=== PATIENT | female | born 1995 | race Caucasian/White ===

== ENCOUNTER 2020-08-02 16:13 | Emergency (ER) | payer BC, SELFPAY ==
[2020-08-02 16:35] VITALS: BP 144/75; PULSE 69; RESP 14; TEMP 36.7; O2SAT 98; BMI 33.5
[2020-08-02 17:29] LABS: Add Manual Diff / Slide Review NO; Basophils Absolute Auto 0 /uL (0-100); Basophils Percent Auto 0.6 % (0-2); Eosinophils Absolute Auto 100 /uL (0-450); Eosinophils Percent Auto 0.9 % (2-4); Hematocrit 40.3 % (36-46); Hemoglobin 13.7 g/dL (12.0-16.0); Lymphocytes Absolute Auto 1400 /uL (1100-4500); Lymphocytes Percent Auto 19.7 % (25-40); Mean Corpuscular HGB Conc 34.1 % (30-36); Mean Corpuscular Hemoglobin 28.9 PG (26-34); Mean Corpuscular Volume 84.9 fL (80-100); Monocytes Absolute Auto 700 /uL (0-900); Monocytes Percent Auto 9.2 % (3-14); Neutrophils Absolute Auto 5100 /uL (1500-7000); Neutrophils Percent Auto 69.6 % (50-75); Platelet Count 295 X10^3/uL (150-400); Red Blood Cell Count 4.74 X10^6/uL (4.0-5.2); Red Cell Distribution Width 13.2 % (11.6-14.8); White Blood Cell Count 7.4 X10^3/uL (4.5-11.0)
[2020-08-02 17:39] LABS: Alanine Aminotransferase 22 IU/L (<35); Albumin 4.5 g/dL (3.5-5.0); Albumin Globulin Ratio 1.3 (1.0-2.8); Alkaline Phosphatase 66 U/L (38-126); Aspartate Aminotransferase 27 IU/L (14-36); BUN Creatinine Ratio 19.4 (6-22); Bilirubin Total 0.8 mg/dL (0.2-1.3); Blood Urea Nitrogen 14 mg/dL (7-17); Calcium 9.8 mg/dL (8.4-10.2); Carbon Dioxide 26 mmol/L (22-32); Chloride 107 mmol/L (98-107); Estimated Glomerular Filt Rate > 60.0 mL/min (>60); Globulin 3.4 g/dL (1.7-4.1); Glucose 112 mg/dL (70-100); HEMOLYSIS < 15 (0-50); Lipase 104 U/L (23-300); Sodium 143 mmol/L (137-145); Total Protein 7.9 g/dL (6.3-8.2)
[2020-08-02 17:41] LABS: INR 1.1 (0.9-1.3); Prothrombin Time 12.8 SECONDS (10.1-12.7)
[2020-08-02 17:44] LABS: PTT Partial Thromboplastin Tim 33 SECONDS (26.4-36.2)
--- NOTE | 2020-08-02 17:55 | ED_ITS ---
HPI - Abdominal Pain General Chief Complaint: Abdominal Pain Stated Complaint: Pain in Right Lower Abd, Cramps, Nausea Time Seen by Provider: 08/02/20 17:54 Source: patient Mode of arrival: Ambulatory Limitations: no limitations History of Present Illness HPI narrative: 25F nonsmoker with nonsignificant medical history presents with the chief complaint of gradually worsening lower abdominal discomfort over the the past day or so. She states that she has intermittent crampy abdominal pain which is across much of her lower abdomen and at times seems to settle in her right lower quadrant. She denies nausea or vomiting and states she has had no change in her appetite. She denies any dysuria, frequency or urgency. She just finished her last period and states it was normal. She had a bowel movement earlier that was normal for her. She denies any vaginal bleeding or discharge. She has no dysuria, frequency or urgency. She denies any obvious provocation or palliation and states that the pain seems to come and go with the mind of its own MD complaint: abdominal pain Onset (ago): hour(s) Pain Consistency: intermittent Location: diffuse Severity: mild Quality: cramping Relieving factors: nothing Associated symptoms: nausea Related Data Allergies Allergy/AdvReac Type Severity Reaction Status Date / Time No Known Drug Allergies Allergy Verified 08/02/20 16:39 Review of Systems Constitutional Constitutional: Denies chills, Denies fatigue, Denies fever(s), Denies frequent falls, Denies lethargy and Denies weakness Eyes Eyes: Denies change in vision, Denies eye discharge, Denies irritation and Denies loss of vision ENT Ears, Nose, Mouth, and Throat: Denies change in voice, Denies dizziness, Denies neck pain, Denies sore throat and Denies throat swelling Cardiovascular Cardiovascular: Denies chest pain, Denies irregular heart rhythm, Denies lightheadedness, Denies palpitations, Denies dyspnea, Denies dyspnea on exertion and Denies orthopnea Respiratory Respiratory: Denies cough, Denies dyspnea, Denies dyspnea on exertion and Denies wheezing Gastrointestinal Gastrointestinal: Reports abdominal pain, Denies change in bowel habits, Denies diarrhea, Reports nausea and Denies vomiting Musculoskeletal Musculoskeletal: Denies neck pain and Denies numbness Integumentary/Breasts Skin/Breast: Denies pruritus, Denies erythema, Denies rash and Denies wounds Neurologic Neurologic: Denies behavioral changes, Denies confusion, Denies dizziness, Denies frequent falls, Denies loss of vision, Denies numbness and Denies weakness Psychiatric Psychiatric: Denies anxiety, Denies behavioral changes, Denies confusion, Denies depression, Denies homicidal ideation and Denies suicidal ideation Endocrine Endocrine: Denies fatigue, Denies flushing and Denies palpitations Hematologic/Lymphatic Hematologic/Lymphatic: Denies easy bruising Allergic/Immunologic Allergic/Immunologic: Denies urticaria, Denies throat swelling and Denies wheezing Patient History Social History Smoking Status: Unknown if ever smoked Smoking Status: Unknown if ever smoked alcohol intake frequency: holidays/special occasions only Substance Use Type: marijuana Exam Narrative Exam Narrative: GENERAL: [25] year old patient appears stated age. Well- nourished, well-developed patient, in mild distress. HEAD: Atraumatic. Normocephalic. EYES: Pupils equal round and reactive. Extraocular motions intact. No scleral icterus. No injection or drainage. ENT: Nose without bleeding, purulent drainage. Throat without erythema, t onsillar hypertrophy or exudate. Airway patent. NECK: Trachea midline. Non tender CARDIOVASCULAR: Regular rate and rhythm without murmurs, gallops, or rubs. RESPIRATORY: Clear to auscultation. Breath sounds equal bilaterally. No wheezes, rales, or rhonchi. GASTROINTESTINAL: Abdomen soft, non-tender, nondistended. Bowel sounds present in all 4 quadrants. No pain at McBurney's, negative heel tap, psoas, Rovsing's EXTREMITIES: No edema or joint tenderness. BACK: Nontender without deformity or crepitance. No flank tenderness. NEURO: AOx3. SKIN: No rash or erythema of visible areas Initial Vital Signs Initial Vital Signs: Vital Signs Temperature 98.1 F 08/02/20 16:35 Pulse Rate 69 08/02/20 16:35 Respiratory Rate 14 08/02/20 16:35 Blood Pressure 144/75 H 08/02/20 16:35 Pulse Oximetry 98 08/02/20 16:35 Course Orders Ordered: ED Orders 08/02/20 17:08 Complete Blood Count AUTO DIFF Stat Comprehensive Metabolic Panel Stat Lipase Stat Partial Thromboplastin Time Stat Prothrombin Time INR Stat Vital Signs Vital signs: Vital Signs - 8 hr 08/02/20 16:35 08/02/20 18:25 Temperature 98.1 F Pulse Rate 69 64 Respiratory Rate 14 Blood Pressure 144/75 H 130/60 Pulse Oximetry 98 99 MDM - Abdominal Pain Lab Data Result diagrams: 08/02/20 17:08 08/02/20 17:08 Labs: Lab Results 08/02/20 08/02/20 08/02/20 Range/Units 17:08 17:08 17:08 WBC 7.4 (4.5-11.0) X10^3/uL RBC 4.74 (4.0-5.2) X10^6/uL Hgb 13.7 (12.0-16.0) g/dL Hct 40.3 (36-46) % MCV 84.9 (80-100) fL MCH 28.9 (26-34) PG MCHC 34.1 (30-36) % RDW 13.2 (11.6-14.8) % Plt Count 295 (150-400) X10^3/uL Neut % (Auto) 69.6 (50-75) % Lymph % (Auto) 19.7 L (25-40) % [place] % (Auto) 9.2 (3-14) % Eos % (Auto) 0.9 L (2-4) % Baso % (Auto) 0.6 (0-2) % Neut # (Auto) 5100 (2141-8188) /uL Lymph # (Auto) 1400 (7429-6950) /uL [place] # (Auto) 700 (0-900) /uL Eos # (Auto) 100 (0-450) /uL Baso # (Auto) 0 (0-100) /uL PT 12.8 H (10.1-12.7) SECONDS INR 1.1 (0.9-1.3) APTT 33 (26.4-36.2) SECONDS Sodium 143 (137-145) mmol/L Potassium 4.0 (3.4-5.1) mmol/L Chloride 107 (98-107) mmol/L Carbon Dioxide 26 (22-32) mmol/L BUN 14 (7-17) mg/dL Creatinine 0.72 (0.52-1.04) mg/dL Estimated GFR > 60.0 (>60) mL/min BUN/Creatinine Ratio 19.4 (6-22) Glucose 112 H (70-100) mg/dL Calcium 9.8 (8.4-10.2) mg/dL Total Bilirubin 0.8 (0.2-1.3) mg/dL AST 27 (14-36) IU/L ALT 22 (<35) IU/L Alkaline Phosphatase 66 (38-126) U/L Total Protein 7.9 (6.3-8.2) g/dL Albumin 4.5 (3.5-5.0) g/dL Globulin 3.4 (1.7-4.1) g/dL Albumin/Globulin Ratio 1.3 (1.0-2.8) Lipase 104 (23-300) U/L Point of care testing: Point of Care Testing Test Results Negative Urine Dip Bedside Urine Glucose Negative Bedside Urine Bilirubin - Negative Bedside Urine Ketone - Negative Urine Specific [place] 1.015 Bedside Urine Occult Blood - Negative Bedside Urine pH 6.0 Bedside Urine Protein - Negative Bedside Urine Urobilinogen - Negative Bedside Urine Nitrite - Negative Bedside Urine Leukocytes - Negative Esterase MDM Narrative Medical decision making narrative: Patient with intermittent crampy abdominal pain. Lack of migration, provocation, palliation, radiation. No fever, no leukocytosis. Exam and story are very reassuring. We did have extensive discussion at the bedside with patient and her mother and engaged in shared decision making. I told him this could be a presentation of early appendicitis though far from classic. We talked about risks and benefits of CT tonight versus close follow-up in 12-24 hours unsure the opinion that given her reassuring history, physical and labs that we would learn a lot over the next day. She has been given return precautions and understands the importance of close follow-up. Questions have been answered to her apparent satisfaction Discharge Plan Departure Patient Disposition: Home Clinical Impression: Abdominal pain Qualifiers: Abdominal location: generalized Qualified Code(s): R10.84 - Generalized abdominal pain Instructions: DI for Abdominal Pain-Adult Activity Restrictions/Additional Instructions: *You have been diagnosed with [crampy abdominal pain with reassuring history, exam and labs. This could be early appendicitis and as we discussed we will learn more in the next 12-24 hours.] *What to do: *Take medications as directed *Follow up with your primary care provider in 2-3 days, call for an appointment. Let them know you were seen in the Emergency Department and that we ask that you be seen in follow up *Return to ER if you should have any new, worsening or concerning symptoms, such as [worsening, more persistent pain, fever greater than 101, vomiting or other bothersome symptoms] Referrals: Divine Ricks MD [Primary Care Provider] -
[2020-08-02 18:25] VITALS: BP 130/60; PULSE 64; O2SAT 99
== END 2020-08-02 18:25 | disposition home or self-care (01) ==
PROVIDERS: Emergency Medicine; Emergency Provider Emergency Medicine; PCP Family Medicine
DX: R10.84 Generalized abdominal pain (principal)
CPT/HCPCS: 36415; 80053; 81003; 81025; 83690; 85025; 85610; 85730; 99283

== ENCOUNTER → 2022-02-23 13:54 | Outpatient (CLI) | payer BC, SELFPAY | PROVIDERS: PCP Family Medicine; Visit Provider Nurse Practitioner Family | DX: J02.9 Acute pharyngitis, unspecified (principal) | CPT/HCPCS: 87070; 87147 ==

== ENCOUNTER → 2023-05-30 13:14 | Outpatient (CLI) | payer OTHER, SELFPAY ==
[2023-05-30 14:07] LABS: Add Manual Diff / Slide Review NO; Basophils Absolute Auto 0 /uL (0-100); Basophils Percent Auto 0.3 % (0-2); Eosinophils Absolute Auto 100 /uL (0-450); Eosinophils Percent Auto 0.9 % (2-4); Hematocrit 40.1 % (36-46); Hemoglobin 13.7 g/dL (12.0-16.0); Lymphocytes Absolute Auto 1500 /uL (1100-4500); Lymphocytes Percent Auto 16.4 % (25-40); Mean Corpuscular HGB Conc 34.1 % (30-36); Mean Corpuscular Volume 85.1 fL (80-100); Monocytes Absolute Auto 500 /uL (0-900); Monocytes Percent Auto 5.4 % (3-14); Neutrophils Absolute Auto 6900 /uL (1500-7000); Platelet Count 331 X10^3/uL (150-400); Red Blood Cell Count 4.72 X10^6/uL (4.0-5.2); Red Cell Distribution Width 13.3 % (11.6-14.8)
[2023-05-30 15:44] LABS: Urine N gonorrhoeae NOT DETECTED
[2023-05-30 15:58] LABS: Urine Chlamydia NOT DETECTED
[2023-05-30 16:34] LABS: Hepatitis B Surface Antigen NEGATIVE s/c (NEGATIVE)
[2023-05-30 16:50] LABS: HIV 1 & 2 Ab/Ag 4th Gen Combo NEGATIVE (NEGATIVE); Hep C Virus Ab w/Reflex Quant NEGATIVE s/c (NEGATIVE)
[2023-05-30 18:16] LABS: Appearance Urine UA TURBID; Bilirubin Urine UA NEGATIVE (NEGATIVE); Color Urine UA YELLOW; Glucose Urine UA NEGATIVE (Negative); Ketones Urine UA NEGATIVE (NEGATIVE); Leukocyte Esterase Urine UA NEGATIVE (NEGATIVE); Nitrite Urine UA NEGATIVE (Negative); Occult Blood Urine UA NEGATIVE (Negative); Protein Urine UA NEGATIVE (Negative); Specific Gravity Urine UA 1.025 (1.000-1.035); Urobilinogen Urine UA 0.2 E.U./dL (0.2)
[2023-05-30 18:20] LABS: pH Urine UA 5.5 (4.5-8.0)
[2023-05-31 05:13] LABS: RPR Screen Non Reactive (Non Reactive)
[2023-05-31 09:58] LABS: Varicella IgG Antibody 2508 index (Immune >165)
== END ==
LOC: LAB 13:15
PROVIDERS: PCP Family Medicine; Referring Provider Family Medicine; Visit Provider Family Medicine
DX: Z34.01 Encounter for supervision of normal first pregnancy, first trimester (principal)
CPT/HCPCS: 36415; 80055; 81003; 86787; 86803; 86850; 86900; 86901; 87086; 87389; 87491; 87591

== ENCOUNTER → 2023-07-21 07:50 | Outpatient (CLI) | payer OTHER, SELFPAY ==
[2023-07-21 08:42] LABS: Influenza A - CEPHEID Flu A NEGATIVE (NEGATIVE); Influenza B - CEPHEID Flu B NEGATIVE (NEGATIVE); Respiratory Syncytial Virus Negative (Negative)
[2023-07-21 08:45] LABS: COVID-19 CEPHEID 4-PLEX PCR Negative (Negative)
== END ==
PROVIDERS: PCP Family Medicine; Visit Provider Physician Assistant Medical
DX: J02.9 Acute pharyngitis, unspecified (principal); R52 Pain, unspecified
CPT/HCPCS: 0241U; 87070

== ENCOUNTER → 2023-07-29 11:06 | Outpatient (CLI) | payer OTHER, SELFPAY ==
[2023-08-01 13:58] LABS: Estriol, Free 1.55 ng/mL (.); Inhibin A, Dimeric 98.45 pg/mL (.); Inhibin A, MoM 0.84 (.); Maternal Ethnicity Caucasian (.); Maternal Weight 239 lbs (.); Number of Fetuses No (.); OSBR Risk 1 IN 10000 (.); Results Report (.); Test Results *Screen Negative* (.); hCG, MoM 0.67 (.); hCG, Serum 16434 mIU/mL (.)
== END ==
PROVIDERS: PCP Family Medicine; Referring Provider Family Medicine; Visit Provider Family Medicine
DX: Z34.00 Encounter for supervision of normal first pregnancy, unspecified trimester (principal)
CPT/HCPCS: 36415; 82105; 82677; 84702; 86336

== ENCOUNTER → 2023-08-18 10:12 | Outpatient (CLI) | payer OTHER, SELFPAY ==
--- NOTE | 2023-08-18 10:13 | DI.US.S_ITS ---
PROCEDURE: US OB >= 14 WEEKS FETUS INDICATIONS: ANATOMY OUTSIDE/PRIOR DATING DATA: Last menstrual period (LMP): 04/01/2023. LMP-based estimated date of delivery (CHELSEY): 01/05/2024. First dating scan (date and location): Not available. Estimated date of delivery (CHELSEY) from first dating scan: Not available. The calculations are made using the working CHELSEY of 01/06/2024. TECHNIQUE: Real-time scanning was performed of the fetus, with image documentation and biometric measurements. Endovaginal scanning: Not performed COMPARISON: None. FINDINGS: General: A single living intrauterine gestation is present. Presentation: Breech. Placenta: Placental position is anterior , without previa. Amniotic fluid index: 10.6 cm, normal range is 5-24 cm. Single deepest vertical pocket is 3.6 cm. heart rate: 139 beats per minute. Maternal cervical canal: 3.9 cm long. Normal lower limit is 2.5 cm. biometrics: Biparietal diameter: 4.7 cm, 20 weeks 2 days Head circumference: 18.4 cm, 20 weeks 6 days Abdominal circumference: 15.3 cm, 20 weeks 3 days Femur length: 3.2 cm, 19 weeks 6 days Clinically estimated gestational age: 19 weeks 6 days Composite gestational age from present scan: 20 weeks 3 days Estimated weight and percentile: 342 g, 69th percentile Anatomic survey: Neuro: Ventricles are non-dilated at less than 10 mm. Cisterna magna is normal at 3-11 mm. Cerebellum is normal in size and morphology. Nuchal skin fold: Normal at less than 6 mm between 14-21 weeks gestational age. Face: Nose and lips are normal. profile not visualized secondary to lie. Spine: No evidence for spina bifida. Heart: 4-chambered heart and ventricular outflow tracts not visualized secondary to lie. Diaphragm: Diaphragm is intact. Stomach: Left-sided stomach is present. Kidneys: No hydronephrosis. Normal is less than 5 mm in 2nd trimester, less than 7 mm in 3rd trimester. Cord: 3-vessel cord has orthotopic insertion. Bladder: Normal in size. Extremities: All 4 extremities identified. IMPRESSION: 1. Living 2nd trimester intrauterine with no sonographic evidence of complications. Ultrasound age is 4 days greater than clinical age. Estimated weight is 69th percentile. 2. Four-chamber view and cardiac outflow tracts are not visualized, and profile is not visualized secondary to lie. Comment: Recommend limited follow-up ultrasound to evaluate cardiac structures and profile. We strive to produce accurate, complete, and clear reports of imaging services. To assist us in improving patient care, this report was composed using standard report templates and voice recognition software. Therefore, it may contain abnormal punctuation, insertions and/or omissions. Occasional wrong-word or sound-alike substitutions may occur. Though we review the report and make efforts to correct it, we do recommend that the report be read carefully in proper context to recognize any text inaccuracies. Dictated by: Isaiah White M.D. on 08/18/2023 at 15:45 Approved by: Isaiah White M.D. on 08/18/2023 at 15:49
== END ==
LOC: US 10:12
PROVIDERS: PCP Family Medicine; Referring Provider Family Medicine; Visit Provider Family Medicine
DX: Z34.02 Encounter for supervision of normal first pregnancy, second trimester (principal); Z3A.20 20 weeks gestation of pregnancy
CPT/HCPCS: 76811

== ENCOUNTER → 2023-09-14 09:18 | Outpatient (CLI) | payer OTHER, SELFPAY ==
--- NOTE | 2023-09-14 09:19 | DI.US.S_ITS ---
PROCEDURE: US OB FOLLOW UP INDICATIONS: anatomy OUTSIDE/PRIOR DATING DATA: Last menstrual period (LMP): 04/01/2023. LMP-based estimated date of delivery (CHELSEY): 01/05/2024. First dating scan (date and location): Not applicable. Estimated date of delivery (CHELSEY) from first dating scan: Not applicable. The calculations are made using the working CHELSEY of 01/06/2024. TECHNIQUE: Real-time scanning was performed of the fetus, with image documentation and biometric measurements. Endovaginal scanning: None COMPARISON: [facility], , OB >= 14 WEEKS FETUS, 08/18/2023, 10:39. FINDINGS: General: A single living intrauterine gestation is present. Presentation: Vertex. Placenta: Placental position is anterior , without previa. Amniotic fluid index: 15.0 cm, normal range is 5-24 cm. Single deepest vertical pocket is 5.0 cm. heart rate: 153 beats per minute. Maternal cervical canal: 3.4 cm long. Normal lower limit is 2.5 cm. Anatomic survey: Neuro: Ventricles are normal at less than 10 mm. Cisterna magna is normal at 3-11 mm. Cerebellum is normal in size and morphology. Nuchal skin fold: Normal at less than 6 mm between 14 and 21 weeks gestational age. Face: Not well seen Spine: No evidence for spina bifida. Heart: Four-chamber view is normal, however, the ventricular outflow tracts are not well seen Diaphragm: Not well seen Stomach: Left-sided stomach is present. Kidneys: No hydronephrosis. Normal is less than 5 mm in 2nd trimester, less than 7 mm in 3rd trimester. Cord: 3 vessel cord has orthotopic insertion. Bladder: Normal in size. Extremities: All 4 extremities are visualized. IMPRESSION: Single live intrauterine consistent with a 23 week 5 day gestation given working CHELSEY Facial profile and ventricular outflow tracks are again not well seen on the current exam. Attention on follow-up. Approved by: Anatoly Ndiaye M.D. on 09/14/2023 at 11:07
== END ==
LOC: US 09:19
PROVIDERS: PCP Family Medicine; Referring Provider Family Medicine; Visit Provider Family Medicine
DX: Z34.02 Encounter for supervision of normal first pregnancy, second trimester (principal); Z3A.23 23 weeks gestation of pregnancy
CPT/HCPCS: 76816

== ENCOUNTER 2023-09-22 11:27 | Emergency (ER) | payer OTHER, SELFPAY ==
[2023-09-22 11:36] VITALS: BP 161/79; PULSE 90; RESP 18; TEMP 36.1; O2SAT 100; BMI 39.6
--- NOTE | 2023-09-22 13:20 | PC.NURSE ---
Provider in with pt when this RN arrived, provider assessing pt at that time.
--- NOTE | 2023-09-22 13:26 | ED_ITS ---
HPI - Extremity Problem <Divine Aguilar PA-C - Last Filed: 09/22/23 13:56> General Chief complaint: Extremity Problem,Nontraumatic Stated complaint: out of place rib, 25 weeks Time Seen by Provider: 09/22/23 12:12 Source: patient Mode of arrival: Ambulatory History of Present Illness HPI Narrative: This is a 28-year-old woman 26 weeks presenting with concern for persistent rib discomfort and muscle tightness specifically with coughing. Patient states that she has seasonal allergies and has had particular trouble with them this year with her often getting postnasal drip causing throat irritation and coughing. Last week she was coughing and felt a twinge in her left side upper ribs with an intense coughing spasm and since then has had intermittent discomfort and muscle tightness in the ribs and has trouble relaxing the area. She has seen a chiropractor twice for adjustments which has helped briefly but not persistently. Her OB saw her recently and increased her daily antihistamine oral medication. She is here today as she was advised to come in and seek options for muscle relaxer. She states she has been taking Tylenol and using icy hot which provides limited relief for a short duration. Denies fevers, chills, nausea, vomiting, diarrhea, abdominal pain, or any other symptoms. Related Data Home Medications Medication Instructions Recorded Confirmed Bacillus coagulans 400 million cell PO 05/03/23 09/20/23 cell chewable tablet (Digestive Advantage Kid Probiotic-Prebio) calcium carbonate 333 mg-magnesium 1 tab PO DAILY 05/03/23 09/20/23 oxide 133 mg-zinc gluc 5 mg tablet vitamin-ferrous sulfate tab PO 05/03/23 09/20/23 27 mg iron-folic acid 0.8 mg tablet Previous Rx's Medication Instructions Recorded baclofen 10 mg tablet 10 mg PO BID muscle spasm/strain 7 09/22/23 days #14 tabs cromolyn 5.2 mg/spray (4 %) nasal 1 spray intranasal TID seasonal 09/22/23 spray alleriges/rhinitis 14 days #26 mL fluticasone propionate 50 2 spray intranasal DAILY allergic 09/22/23 mcg/actuation nasal rhinitis 14 days #16 grams spray,suspension lidocaine 5 % topical ointment 1 applic topical BID PRN pain 7 09/22/23 days #30 grams Allergies Allergy/AdvReac Type Severity Reaction Status Date / Time liquid cough syrup AdvReac Mild Uncoded 09/20/23 14:32 Review of Systems <Divine Aguilar PA-C - Last Filed: 09/22/23 13:56> Review of Systems Narrative: See HPI Patient History <Divine Aguilar PA-C - Last Filed: 09/22/23 13:56> Medical History Eczema Wrist fracture Surgical History History of removal of skin mole [place] teeth extracted Family History Father Diabetes mellitus Stroke Heart disease Mother Diverticulosis Depression Uncle Diabetes mellitus Social History marital status: number of children: 0 household members: spouse lives independently: Yes caregiver/support person: No housing: house pets and animals: Yes (2 dogs) education level: college (bachelor's degree) occupational status: employed special dajuan needs: No travel history: recent (domestic only) seatbelt use: always helmet use: Yes water heater temp set < 120 deg: Yes working smoke detector in home: Yes fire extinguisher in home: Yes carbon monox detector in home: Yes firearms in home: Yes do you feel safe at home: Yes (pt's spouse present when this was answered) Smoking Status: Never smoker second hand exposure: No alcohol intake: former (occasionally when not ) substance use type: marijuana (not while /) during the past year weight has: increased > 10 lbs (reports that it started w/ Nexplanon) well-balanced diet: about half the time daily servings fruits/ve-4 (Usually ~2) caffeine: Yes (~100-150mg/day) Type(s) of exercise: aerobic Smoking Status: Never smoker alcohol intake frequency: holidays/special occasions only Substance Use Type: does not use Exam <Divine Aguilar PA-C - Last Filed: 09/22/23 13:56> Narrative Exam Narrative: GENERAL: [28] year old patient appears stated age. Well-developed patient, in mild distress. HEAD: Atraumatic. Normocephalic. EYES: Pupils equal round and reactive. Extraocular motions intact. No scleral icterus. No injection or drainage. ENT: Nose without bleeding, purulent drainage. Airway patent. NECK: Trachea midline. Non tender CARDIOVASCULAR: Regular rate and rhythm without murmurs, gallops, or rubs. RESPIRATORY: Clear to auscultation. Breath sounds equal bilaterally. No wheezes, rales, or rhonchi. GASTROINTESTINAL: Abdomen nondistended, protuberant consistent with 26 weeks' gestation, no CVA tenderness. EXTREMITIES: No edema or joint tenderness. BACK/thorax: Patient has tenderness with palpation laterally and anteriorly of the intercostal space in ribs 7 through 10 with reproducible pain. Muscle tightness at the rhomboids on the left and around the shoulder girdle. Otherwise Nontender without deformity or crepitance. No flank tenderness. NEURO: AOx3. SKIN: No rash or erythema of visible areas Initial Vital Signs Initial Vital Signs: Vital Signs Temperature 97 F L 09/22/23 11:36 Pulse Rate 90 09/22/23 11:36 Respiratory Rate 18 09/22/23 11:36 Blood Pressure 161/79 H 09/22/23 11:36 Pulse Oximetry 100 09/22/23 11:36 Oxygen Delivery Method Room Air 09/22/23 11:36 <Melissa Penaloza DO - Last Filed: 09/23/23 08:50> Initial Vital Signs Initial Vital Signs: Vital Signs Temperature 97 F L 09/22/23 11:36 Pulse Rate 90 09/22/23 11:36 Respiratory Rate 18 09/22/23 11:36 Blood Pressure 161/79 H 09/22/23 11:36 Pulse Oximetry 100 09/22/23 11:36 Oxygen Delivery Method Room Air 09/22/23 11:36 Course <Divine Aguilar PA-C - Last Filed: 09/22/23 13:56> Vital Signs Vital signs: Vital Signs - 8 hr 09/22/23 11:36 09/22/23 13:50 Temperature 97 F L Pulse Rate 90 88 Respiratory Rate 18 18 Blood Pressure 161/79 H 154/76 H Pulse Oximetry 100 100 Oxygen Delivery Method Room Air Room Air <DO Pepper Andersen Last Filed: 09/23/23 08:50> Vital Signs Vital signs: Vital Signs - 8 hr 09/22/23 11:36 09/22/23 13:50 Temperature 97 F L Pulse Rate 90 88 Respiratory Rate 18 18 Blood Pressure 161/79 H 154/76 H Pulse Oximetry 100 100 Oxygen Delivery Method Room Air Room Air MDM - Extremity (Nontraumatic) <Divine Aguilar PA-C - Last Filed: 09/22/23 13:56> Differential Diagnosis Differential diagnosis: Likely other (Muscle strain, muscle spasm, intercostal muscle strain, seasonal allergies, allergic rhinitis, rhinitis) MDM Narrative Medical decision making narrative: 28-year-old woman 26 weeks presents with concern for approximately 1 week of bothersome intercostal muscle tightness worse with coughing has been seen by her OB and had chiropractic adjustments to times. Presents today with concern for wanting to try a muscle relaxer in order to allow her to get some rest and additional options to help reduce postnasal drip which is causing her to cough and causing the pain. Discussed with the patient safety of muscle relaxer and noting that these are not well studied, patient understands and will use minimally baclofen as prescribed no more than 20 mg TID recommend she only take 10 mg at night to help with symptoms for short duration also requests she speak with her OB about this medication and ensure they are on board. Prescription for topical lidocaine encouraged she may try diclofenac topically as well. Prescription for cromolyn and fluticasone nasal spray. Return precautions provided, follow-up plan discussed, all questions answered. Patient's exam and history do not suggest internal process such as pancreatitis UTI pyelonephritis. She is quite well-appearing and denies any other concerning symptoms and states is progressing normally. Discharge Plan Departure Patient Disposition: Home Clinical Impression: Acute seasonal allergic rhinitis Intercostal muscle strain Qualifiers: Encounter type: initial encounter Qualified Code(s): S29.011A - Strain of muscle and tendon of front wall of thorax, initial encounter Activity Restrictions/Additional Instructions: *You have been diagnosed with [muscle strain intercostal/spasm, rhinitis/seasonal allergies] *What to do: *Please continue to take your regular medications as directed. [3 ] New medication prescriptions sent to your pharmacy: [Cromolyn nasal spray, fluticasone, baclofen] [ ] New medication written as a paper prescription [ ] No new medications given *Please follow up with your primary care provider in 2-3 days, call for an appointment. Let them know you were seen in the Emergency Department and that we ask that you be seen in follow up. We will electronically transmit a record of today's note if your PCP is in our system. As we discussed today in the ER there have been limited studies performed on most muscle relaxers in , some of them are noted to be unsafe. The 1 I have prescribed for you today has been studied somewhat in and with prolonged use does show withdrawal symptoms at in infants. As we discussed I would encourage you to use it once a day at night only up to twice a day if needed for short duration only. I also would like you to talk to your OB about use of this medication and ensure they are on board as well. Hopefully this will allow you to get some rest and improve her symptoms with your muscle strain and rib problem. I also prescribed cromolyn sodium nasal spray and fluticasone, these may both be available [id number] and are both safe for use in . I hope this helps to reduce your nasal drip and coughing and therefore minimize your rib discomfort. I hope you feel better soon. *If you do not have a primary care provider please contact the [facility] Resource line at [phone]. They will ask some questions about your medical history and help get you set up with a doctor in the community. *Return to Emergency Department if you should have any new, worsening or co ncerning symptoms, such as [fever greater than 101 F, shaking chills, worsening pain, persistent vomiting or other bothersome symptoms] Prescriptions: New baclofen 10 mg tablet 10 mg PO BID 7 Days Qty: 14 0RF cromolyn 5.2 mg/spray (4 %) spray,non-aerosol 1 spray intranasal TID 14 Days Qty: 26 0RF fluticasone propionate 50 mcg/actuation spray,suspension 2 spray intranasal DAILY 14 Days Qty: 16 0RF Rx Instructions: administer into each nostril lidocaine 5 % ointment 1 applic topical BID PRN (Reason: pain) 7 Days Qty: 30 0RF No Action vit-ferrous sulfat-FA 27 mg iron- 0.8 mg tablet PO calcium carb-mag ox-zinc gluc 333-133-5 mg tablet 1 tab PO DAILY Digestive Advantag Kid Pro-Pre 400 million cell tablet,chewable PO Referrals: Divine Ricks MD [Primary Care Provider] - Stand Alone Forms: Patient Portal/API ED Sign-out <Melissa Penaloza DO - Last Filed: 09/23/23 08:50> Cosign ED Attending Dylonature Attestation: I was available for consultation.
[2023-09-22 13:50] VITALS: BP 154/76; PULSE 88; RESP 18; O2SAT 100
== END 2023-09-22 13:51 | disposition home or self-care (01) ==
PROVIDERS: Emergency Provider Student in an Organized Health Care Education/Training Program; PCP Family Medicine
DX: O26.892 Other specified pregnancy related conditions, second trimester (principal); J30.2 Other seasonal allergic rhinitis; J00 Acute nasopharyngitis [common cold]; S29.011A Strain of muscle and tendon of front wall of thorax, initial encounter; Z3A.26 26 weeks gestation of pregnancy; X58.XXXA Exposure to other specified factors, initial encounter
CPT/HCPCS: 99281; 99283

== ENCOUNTER → 2023-09-29 09:44 | Outpatient (CLI) | payer OTHER, SELFPAY ==
--- NOTE | 2023-09-29 09:44 | DI.US.S_ITS ---
PROCEDURE: US OB FOLLOW UP INDICATIONS: follow up OUTSIDE/PRIOR DATING DATA: Last menstrual period (LMP): April 01, 2023. LMP-based estimated date of delivery (CHELSEY): January 05, 2024 Estimated date of delivery (CHELSEY) from first dating scan: January 06, 2024 The calculations are made using the ultrasound CHELSEY of January 06, 2024. TECHNIQUE: Real-time scanning was performed of the fetus, with image documentation. Endovaginal scanning: Not performed COMPARISON: [facility], OB FOLLOW UP, 09/14/2023, 9:55. FINDINGS: A single living intrauterine gestation is present. Presentation: Vertex. Placenta: Placental position is anterior, without previa. Amniotic fluid index: 20.1 cm, normal range is 5-24 cm. Single deepest vertical pocket is 6.7 cm. heart rate: 141 beats per minute. Maternal cervical canal: 4.0 cm long. Normal lower limit is 2.5 cm. Clinically estimated gestational age: Not calculated Estimated gestational age from initial scan: Approximately 25 weeks and 6 days. Re-evaluation of the right and left ventricular outflow tracts appear within normal limits. facial profile also appears within normal limits. IMPRESSION: Living intrauterine gestation with estimated gestational age of approximately 25 weeks and 6 days. Re-evaluation of the right and left ventricular outflow tracts as well as the facial profile appear within normal limits. Dictated by: Jose Manuel Echeverria M.D. on 09/29/2023 at 20:32 Approved by: Jose Manuel Echeverria M.D. on 09/29/2023 at 20:35
== END ==
LOC: US 09:44
PROVIDERS: PCP Family Medicine; Referring Provider Family Medicine; Visit Provider Family Medicine
DX: Z34.02 Encounter for supervision of normal first pregnancy, second trimester (principal); Z3A.25 25 weeks gestation of pregnancy
CPT/HCPCS: 76816

== ENCOUNTER → 2023-10-13 09:43 | Outpatient (CLI) | payer OTHER, SELFPAY ==
[2023-10-13 12:50] LABS: Add Manual Diff / Slide Review NO; Basophils Absolute Auto 0 /uL (0-100); Basophils Percent Auto 0.4 % (0-2); Eosinophils Absolute Auto 200 /uL (0-450); Eosinophils Percent Auto 1.4 % (2-4); Hematocrit 34.7 % (36-46); Hemoglobin 11.9 g/dL (12.0-16.0); Lymphocytes Absolute Auto 1400 /uL (1100-4500); Mean Corpuscular HGB Conc 34.1 % (30-36); Mean Corpuscular Hemoglobin 29.4 PG (26-34); Mean Corpuscular Volume 86.2 fL (80-100); Monocytes Absolute Auto 600 /uL (0-900); Monocytes Percent Auto 5.2 % (3-14); Neutrophils Absolute Auto 9600 /uL (1500-7000); Platelet Count 247 X10^3/uL (150-400); Red Blood Cell Count 4.03 X10^6/uL (4.0-5.2); Red Cell Distribution Width 13.8 % (11.6-14.8); White Blood Cell Count 11.9 X10^3/uL (4.5-11.0)
[2023-10-13 13:48] LABS: GTT (PREG) 1 Hour PP 50gm Dose 153 mg/dL (76-139)
== END ==
LOC: LAB 09:46
PROVIDERS: PCP Family Medicine; Referring Provider Family Medicine; Visit Provider Family Medicine
DX: Z34.00 Encounter for supervision of normal first pregnancy, unspecified trimester (principal)
CPT/HCPCS: 36415; 82950; 85025

== ENCOUNTER → 2023-10-27 08:00 | Outpatient (CLI) | payer OTHER, SELFPAY ==
[2023-10-27 09:28] LABS: Glucose Fasting Gestational 91 mg/dL (76-95)
[2023-10-27 10:06] LABS: Glucose 1 Hour Gest 154 mg/dL (76-180)
[2023-10-27 11:14] LABS: Glucose 2 Hour Gest 135 mg/dL (76-155)
[2023-10-27 11:26] LABS: Glucose Tol Interp,Gestational INTERPRETATION
[2023-10-27 11:45] LABS: Glucose 3 Hour Gest 84 mg/dL (76-140)
== END ==
PROVIDERS: PCP Family Medicine; Referring Provider Family Medicine; Visit Provider Family Medicine
DX: O99.810 Abnormal glucose complicating pregnancy (principal)
CPT/HCPCS: 82951; 82952

== ENCOUNTER → 2023-12-12 12:07 | Outpatient (CLI) | payer OTHER, SELFPAY ==
[2023-12-13 15:03] LABS: Strep Grp B PCR NEG for Grp B Strep
== END ==
PROVIDERS: PCP Family Medicine; Visit Provider Family Medicine
DX: Z34.00 Encounter for supervision of normal first pregnancy, unspecified trimester (principal)
CPT/HCPCS: 87653

== ENCOUNTER 2024-01-13 09:58 | Inpatient (IN) | payer OTHER, SELFPAY ==
--- NOTE | 2024-01-13 10:10 | DI.US.S_ITS ---
PROCEDURE: US OB BIOPHYSICAL PROFILE INDICATIONS: LATE DATES OUTSIDE/PRIOR DATING DATA: Last menstrual period (LMP): 04/01/2023. LMP-based estimated date of delivery (CHELSEY): 01/05/2024. First dating scan (date and location): Not reported. Estimated date of delivery (CHELSEY) from first dating scan: 01/06/2024. The calculations are made using the ultrasound CHELSEY of 01/06/2024. TECHNIQUE: Real-time scanning was performed of the fetus for biophysical profile, with image documentation. Endovaginal scanning: Not performed COMPARISON: None. FINDINGS: General: A single living intrauterine gestation is present. Presentation: Vertex. Placenta: Placental position is anterior , without previa. Amniotic fluid index: 4.8 cm, normal range is 5-24 cm. Single deepest vertical pocket is 3.4 cm. heart rate: 136 beats per minute. Maternal cervical canal: Not evaluated Clinically estimated gestational age: 41 weeks 0 days Estimated gestational age from initial scan: Not applicable. IMPRESSION: Single living intrauterine at 41 weeks 0 days, CHELSEY of 01/06/2024. LAURA 5 measures 4.8 cm, indicating oligohydramnios. We strive to produce accurate, complete, and clear reports of imaging services. To assist us in improving patient care, this report was composed using standard report templates and voice recognition software. Therefore, it may contain abnormal punctuation, insertions and/or omissions. Occasional wrong-word or sound-alike substitutions may occur. Though we review the report and make efforts to correct it, we do recommend that the report be read carefully in proper context to recognize any text inaccuracies. Dictated by: Fahad Darling M.D. on 01/13/2024 at 12:10 Approved by: Fahad Darling M.D. on 01/13/2024 at 12:12
[2024-01-13 12:39] LABS: Add Manual Diff / Slide Review NO; Basophils Absolute Auto 0 /uL (0-100); Basophils Percent Auto 0.3 % (0-2); Eosinophils Absolute Auto 100 /uL (0-450); Eosinophils Percent Auto 0.9 % (2-4); Hematocrit 37.3 % (36-46); Hemoglobin 12.7 g/dL (12.0-16.0); Lymphocytes Absolute Auto 1300 /uL (1100-4500); Lymphocytes Percent Auto 13.2 % (25-40); Mean Corpuscular HGB Conc 34.1 % (30-36); Mean Corpuscular Hemoglobin 30.3 PG (26-34); Mean Corpuscular Volume 89.1 fL (80-100); Monocytes Absolute Auto 600 /uL (0-900); Monocytes Percent Auto 6.2 % (3-14); Neutrophils Absolute Auto 7700 /uL (1500-7000); Neutrophils Percent Auto 79.4 % (50-75); Platelet Count 211 X10^3/uL (150-400); Red Blood Cell Count 4.19 X10^6/uL (4.0-5.2); Red Cell Distribution Width 14.4 % (11.6-14.8); White Blood Cell Count 9.7 X10^3/uL (4.5-11.0)
[2024-01-13] MEDS: miSOPROStoL 25 MCG TABLET 50 MCG PO (13:25)
--- NOTE | 2024-01-13 13:30 | P.HPOB_ITS ---
OB HPI Date/Time Date of admission: 01/13/24 Date Patient Seen: 01/13/24 History of Present Condition Chief complaint: NST CHELSEY Calculator 2 Estimated Delivery Date Method Current WG Current Estimate 01/06/24 Manual 41w 0d Final CHELSEY - BRANT Other Estimates 01/05/24 LMP (Certain) 41w 1d 01/06/24 Ultrasound #1 41w 0d Estimated Gestational Age (weeks): 41w0d : 1 Para: 0 Narrative: 28yo at 41w0d here for post-dates NST/LAURA, found to have oligohydramnios with LAURA of 4.8. The pt denies any recent vaginal bleeding, LOF, contractions. She is feeling her baby move regularly. Her has been without complications. care: good care, initiated at week # (8) and pounds weight gain (18) Dating criteria OB: LMP confirmed by 1st trimester US Ultrasounds: normal 1st trimester US and normal mid trimester US Obstetrical complications: none Medical complications OB: none Indications Indication for induction OB: oligohydramnios Preadmission Labs Last OB Lab Results: 2 Blood Type O Positive 01/13/24 12:15 Antibody Screen Negative 01/13/24 12:15 Hct 37.3 % (36-46) 01/13/24 12:15 Hgb 12.7 g/dL (12.0-16.0) 01/13/24 12:15 Hep Bs Antigen Negative s/c (NEGATIVE) 05/30/23 13:29 Hepatitis C Antibody Negative s/c (NEGATIVE) 05/30/23 13:29 Rubella Antibody 156.0 IU/mL (>15) 05/30/23 13:29 VZV IgG Antibody 2508 index (Immune >165) 05/30/23 13:29 Glucose 1 Hr 50 gm 153 mg/dL (76-139) H 10/13/23 11:35 Group B Strep (PCR) Neg for grp b strep 12/12/23 12:05 Glucose Tolerance Testing: Fasting (91), 1 hr (154), 2 hr (135) and 3 hr (84) -: Urine: negative Genetic Screens: Quad screen: Normal External Labs -: Urine: negative Evaluation Evaluation Baseline heart rate: 130 Variability: Moderate (11-25) monitor accelerations: Present Monitor Decelerations: Absent Status: Category l Dilation (cm): 3 Effacement (%): 60 Dilation: 3-4 cm Effacement: 60-70% station: -2 Position of cervix: anterior Consistency: soft Henson score: 9 PFSH Medical History Eczema Wrist fracture Surgical History History of removal of skin mole [place] teeth extracted Family History Father Diabetes mellitus Stroke Heart disease Mother Diverticulosis Depression Uncle Diabetes mellitus Social History (System 12/13/23 @ 08:36 by Sierra Marcum) marital status: number of children: 0 household members: spouse lives independently: Yes caregiver/support person: No housing: house pets and animals: Yes (2 dogs) education level: college (bachelor's degree) occupational status: employed special dajuan needs: No travel history: recent (domestic only) seatbelt use: always helmet use: Yes water heater temp set < 120 deg: Yes working smoke detector in home: Yes fire extinguisher in home: Yes carbon monox detector in home: Yes firearms in home: Yes do you feel safe at home: Yes (pt's spouse present when this was answered) Smoking Status: Never smoker second hand exposure: No alcohol intake: former (occasionally when not ) substance use type: marijuana (not while /) during the past year weight has: increased > 10 lbs (reports that it started w/ Nexplanon) well-balanced diet: about half the time daily servings fruits/ve-4 (Usually ~2) caffeine: Yes (~100-150mg/day) Type(s) of exercise: aerobic Meds Home Medications and Allergies Home Medications Medication Instructions Recorded Confirmed Type vitamin-ferrous sulfate tab PO 05/03/23 01/11/24 History 27 mg iron-folic acid 0.8 mg tablet Allergies Allergy/AdvReac Type Severity Reaction Status Date / Time No Known Drug Allergies Allergy Unverified 01/11/24 14:58 OB Exam Resp Effort & Inspection: normal respiratory effort Auscultation: clear to auscultation bilaterally Cardio Rate: regular rate Rhythm: regular rhythm Heart Sounds: S1 normal, S2 normal and no murmurs GI Inspection: non-distended Palpation: Yes soft and No tender Presentation: vertex Objective Labs 01/13/24 12:15 Labs: Laboratory Results - last 24 hr 01/13/24 12:15 WBC 9.7 RBC 4.19 Hgb 12.7 Hct 37.3 MCV 89.1 MCH 30.3 MCHC 34.1 RDW 14.4 Plt Count 211 Neut % (Auto) 79.4 H Lymph % (Auto) 13.2 L [place] % (Auto) 6.2 Eos % (Auto) 0.9 L Baso % (Auto) 0.3 Neut # (Auto) 7700 H Lymph # (Auto) 1300 [place] # (Auto) 600 Eos # (Auto) 100 Baso # (Auto) 0 Assessment and Plan Assessment and Plan Assessment and Plan narrative: 28yo at 41w0d here for IOL due to oligohydramnios, post-dates. GBS negative, Rh positive. uncomplicated. - Henson score currently 9, however not stephen at all. Will start with cytotec. - FHT reassuring, continuous monitoring due to oligo - GBS negative, no prophylaxis indicated - Epidural for pain control when desired Time-Based Coding :: [TOTAL MINUTES] spent with patient and on the chart (including review of chart, obtaining history, exam, reviewing outside data, placing orders, documenting exam and treatment plan, and counseling patient) on [DATE].
[2024-01-13] MEDS: LACTATED RINGERS 1,000 ML 100 ML IV (18:10)
[2024-01-13] MEDS: OXYTOCIN PREMIX 30 UNIT/500 ML PLAST..BAG IV (18:19)
[2024-01-13 19:13] VITALS: BP 134/69
[2024-01-13] MEDS: ONDANSETRON 4 MG/2 ML INJ IV (23:16)
[2024-01-14] MEDS: TRANEXAMIC ACID 1,000 MG in SODIUM CHLORIDE 0.9% 100 ML 200 MG IV (02:55)
--- NOTE | 2024-01-14 03:14 | PM.OBPRVD ---
Labor & Delivery Delivery date: 01/14/24 Cervical ripening method: per misoprostal protocol Induction method: per pitocin protocol Route of delivery: Episiotomy description: None L&D Laceration Description: None Quantitative Blood Loss: 749 Anesthesia Type: Other (nitrous oxide) Complications: hemorrhage Narrative: PROCEDURE: at 41w0d presented for IOL for oligohydramnios and was admitted to Labor and Delivery. She received a single dose of cytotec followed by pitocin. The patient progressed through the 1st stage over 4 hours. SROM occurred at 21:35 with clear fluid. Pain was controlled with natural methods and nitrous oxide. The patient progressed through the 2nd stage over 39 minutes and delivered a viable male infant with APGARs 8/9 at 2:41 via . The cord was cut and clamped after it stopped pulsating. Prior to the placenta delivering there was a large gush of blood. The placenta then delivered with gentle cord traction, and appeared complete. Bleeding was appropriate with good tone, however due to the large gush of blood prior to the placenta delivering TXA was given in addition to the usual pitocin. The perineum and vagina were inspected with no lacerations. Needle and sponge counts were correct.? The vagina was inspected and no items were left in situ. Eliza was doing well with Jarad, her and her , Fernando, at bedside. PREPROCEDURE DIAGNOSIS: Intrauterine at 41w1d GBS negative RH positive Oligohydramnios POSTPROCEDURE DIAGNOSIS: Intrauterine at 41w1d, delivered Same as preprocedure hemorrhage Baby 1: Infant gender: Male Presentation: vertex Position: Right Occiput Anterior Placenta delivery description: Spontaneous Cord Vessel Description: 3 Vessels score (1 min): 8 score (5 min): 9 weight: 9 lb 4.786 oz Plan for aftercare: Routine care
[2024-01-14] MEDS: ACETAMINOPHEN 325 MG TABLET 650 MG PO ×3 (06:01→18:04)
[2024-01-14] MEDS: WITCH HAZEL/GLYCERIN PADS 1 EACH TOP (06:01)
[2024-01-14] MEDS: IBUPROFEN 600 MG TABLET PO ×3 (06:02→18:04)
[2024-01-14] MEDS: LANOLIN OINT 7 GM 1 APPLIC TOP (06:02)
[2024-01-14] MEDS: DERMOPLAST SPRAY 20% 60 ML 1 SPRAY TOP (06:03)
[2024-01-14] MEDS: DOCUSATE 100 MG CAPSULE PO (10:41)
[2024-01-14] MEDS: PRENATAL VIT,CALC/IRON/FOLIC 1 TABLET 1 TAB PO (10:41)
[2024-01-14 11:40] LABS: Add Manual Diff / Slide Review NO; Basophils Absolute Auto 0 /uL (0-100); Basophils Percent Auto 0.2 % (0-2); Eosinophils Absolute Auto 0 /uL (0-450); Eosinophils Percent Auto 0.1 % (2-4); Hematocrit 31.6 % (36-46); Hemoglobin 10.9 g/dL (12.0-16.0); Lymphocytes Absolute Auto 1300 /uL (1100-4500); Lymphocytes Percent Auto 8.1 % (25-40); Mean Corpuscular HGB Conc 34.6 % (30-36); Mean Corpuscular Hemoglobin 29.8 PG (26-34); Mean Corpuscular Volume 86.1 fL (80-100); Monocytes Absolute Auto 800 /uL (0-900); Neutrophils Absolute Auto 13800 /uL (1500-7000); Neutrophils Percent Auto 86.6 % (50-75); Platelet Count 189 X10^3/uL (150-400); Red Blood Cell Count 3.67 X10^6/uL (4.0-5.2); Red Cell Distribution Width 14.1 % (11.6-14.8); White Blood Cell Count 15.9 X10^3/uL (4.5-11.0)
--- NOTE | 2024-01-14 12:11 | P.DS_ITS ---
Discharge Providers Provider Date of admission: 01/13/24 09:58 Discharge Date: 01/14/24 Primary care physician: Divine Ricks MD Consults: 01/15/24 03:16 Consult to Salesperson [employer] Routine Comment: Discharge provider: Myriam Barrera MD Summary Hospital Course Date Patient Seen: 01/14/24 Diagnoses: 41w1d gestation GBS negative Rh positive Oligohydramnios hemorrhage Hospital Course: The pt presented for IOL due to oligohydramnios. She received cytotec followed by pitocin. She had SROM with clear fluid. She progressed to complete and had an of a viable baby boy. Prior to delivery of the placenta there was a large gush of blood. The placenta then delivered without complications. The pt received pitocin and TXA, and her bleeding was appropriate. There were no lacerations. , there were no additional complications. At the time of discharge she was voiding, ambulating, and passing flatus without difficulty. Her lochia was decreasing appropriately. Her pain was well controlled. She will f/u in 6 weeks for check. She would potentially like OCPs for contraception. Peripartum Data Infant Delivery Method: Natural Vaginal Laceration Description: None Episiotomy description: None Procedures: Spontaneous vaginal delivery [place] 1: Gender: Male Disposition of : home Time Spent with Patient Time attestation: Total time spent providing and/or coordinating discharge services: Objective Labs 01/14/24 11:30 Labs: Laboratory Results - last 24 hr 01/13/24 01/14/24 12:15 11:30 WBC 9.7 15.9 H D RBC 4.19 3.67 L Hgb 12.7 10.9 L Hct 37.3 31.6 L MCV 89.1 86.1 D MCH 30.3 29.8 MCHC 34.1 34.6 RDW 14.4 14.1 Plt Count 211 189 Neut % (Auto) 79.4 H 86.6 H Lymph % (Auto) 13.2 L 8.1 L [place] % (Auto) 6.2 5.0 Eos % (Auto) 0.9 L 0.1 L Baso % (Auto) 0.3 0.2 Neut # (Auto) 7700 H 98794 H Lymph # (Auto) 1300 1300 [place] # (Auto) 600 800 Eos # (Auto) 100 0 Baso # (Auto) 0 0 Blood Type O Positive Antibody Screen Negative Exam Narrative Exam Narrative: Gen: NAD, sitting comfortably in bed, appears well CV: RRR, no murmurs Resp: clear to auscultation bilaterally Abd: soft, appropriately tender, fundus firm and below the umbilicus, nondistended Ext: no edema Discharge Plan Discharge Plan Patient Disposition: Home Discharge orders & Medications Prescriptions: New docusate sodium 100 mg Capsule 100 mg PO DAILY Qty: 30 0RF Continued vit-ferrous sulfat-FA 27 mg iron- 0.8 mg tablet 1 tab PO DAILY Follow up/Referrals: Myriam Barrera MD [Physician] - 6 Weeks (6 week Appt w/ Dr. Barrera will be made on Tuesday) Diet/Activity/Treatments Diet: Diet as Tolerated and Regular Skin/Wound/Dressing Care Report to your healthcare provider any signs of infection, such as:: chills, fever, increased pain and unusual drainage Visit Report/Discharge Packet Instructions: DI for Labor and Delivery, Vaginal Stand Alone Forms: Discharge: Care, Patient Portal/API, Stroke Signs & Symptoms Discharge Data Primary Care Provider: Divine Ricks Attending Provider: Myriam Barrera Admit Date/Time: 01/13/24 09:58
[2024-01-14 17:38] VITALS: BP 124/46; PULSE 68; RESP 16; TEMP 36.6
== END 2024-01-14 21:30 | disposition home or self-care (01) | DRG 806 ==
PROVIDERS: Admitting Provider Family Medicine; PCP Family Medicine; Referring Provider Family Medicine; Visit Provider Family Medicine
DX: O41.03X0 Oligohydramnios, third trimester, not applicable or unspecified (principal); O72.2 Delayed and secondary postpartum hemorrhage; Z37.0 Single live birth; O48.0 Post-term pregnancy; Z3A.41 41 weeks gestation of pregnancy
CPT/HCPCS: 36415; 59025; 59050; 59200; 76819; 85025; 86850; 86900; 86901; G0378; G0379; J2405; J2590